=== PATIENT | female | born 1985 | race African-American/Black ===

== ENCOUNTER 2018-09-10 12:54 | Emergency (ER) | payer SELFPAY ==
[2018-09-10 13:00] VITALS: BMI 32.1
[2018-09-10] MEDS ORDERED: ACTIVATED CHARCOAL 260 MG CAPSULE PO ONE (13:17)
[2018-09-10] MEDS ORDERED: CHARCOAL/WATER SOLUTION 25 GM/120 ML TUBE ONE (13:23)
[2018-09-10 13:59] LABS: URINE APPEARANCE CLEAR; URINE BILIRUBIN NEGATIVE (<2.0 mg/dL); URINE COLOR STRAW; URINE GLUCOSE (UA) NEGATIVE (NEGATIVE); URINE KETONE NEGATIVE (NEGATIVE); URINE LEUK ESTERASE NEGATIVE (NEGATIVE); URINE NITRITE NEGATIVE (NEGATIVE); URINE PROTEIN NEGATIVE (NEGATIVE); URINE UROBILINOGEN NEGATIVE mg/dL (0.2-1.0)
[2018-09-10 14:00] LABS: PROTHROMBIN TIME (PATIENT) 11.8 SEC (9.7-13.0)
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
--- NOTE | 2018-09-10 14:23 | PDOC ---
History of Present Illness - General Chief Complaint: Overdose Stated Complaint: OVERDOSE Time Seen by Provider: 09/10/18 13:04 History Source: Patient Exam Limitations: No Limitations - History of Present Illness Initial Comments: 33 yo F w no reported medical history presents after an attempted suicide. She took 30 benadryl's 30 minutes prior to arrival. She has been feeling very depressed because her relationship with her has not been going well. After she took the pills she got scared so she came into the hospital. She has attempted suicide twice in the past. She is also currently . She does not know her LMP and has not yet had a formal ultrasound. She states she believes her last period was sometime in april. She is currently mentating well and has no AMS. she does admit to feeling like her heart is beating fast. She denies taking any tylenol, aspirin, TCAs or other drugs in this attempt. PCP: None Allergies: NKA, NKDA Social Hx: denies using illicit drugs, smoking cigarettes, or drinking alcohol during her . Past History - Past Medical History Allergies/Adverse Reactions: Allergies Allergy/AdvReac Type Severity Reaction Status Date / Time No Known Allergies Allergy Verified 09/10/18 12:56 Home Medications: Ambulatory Orders NK [No Known Home Medication] 09/10/18 COPD: No - Suicide/Smoking/Psychosocial Hx Smoking History: Former smoker Have you smoked in the past 12 months: No Information on smoking cessation initiated: No Hx Alcohol Use: No Drug/Substance Use Hx: No Review of Systems - Review of Systems Able to Perform ROS?: Yes Comments:: CONSTITUTIONAL: Absent: fever, no chills, no fatigue EYES: Absent: visual changes ENT: Absent: ear pain, no sore throat CARDIOVASCULAR: Absent: chest pain, no palpitations RESPIRATORY: Absent: cough, no SOB GI: Absent: abdominal pain, no nausea, no vomiting, no constipation, no diarrhea GENITOURINARY: Absent: dysuria, no frequency, no hematuria MUSKULOSKELETAL: Absent: back pain, no arthralgia, no myalgia SKIN: Absent: rash NEURO: Absent: headache *Physical Exam - Vital Signs Last Vital Signs Temp Pulse Resp BP Pulse Ox 98.5 F 90 20 116/82 100 09/10/18 12:57 09/10/18 12:57 09/10/18 12:57 09/10/18 12:57 09/10/18 12:57 - Physical Exam Comments: GENERAL: Well-appearing, well-nourished. No apparent distress. HEENT: Normocephalic, atraumatic. PERRL, EOM intact. CARDIOVASCULAR: Normal S1, S2. tachycardic rate and regular rhythm. PULMONARY: Clear to auscultation bilaterally. ABDOMEN: Soft, non-distended, non-tender. EXTREMITIES: Normal ROM in all four extremities. No gross deformities. SKIN: Warm, dry. No rash NEUROLOGICAL: No focal neurological deficits. Moderate Sedation - Procedure Monitoring Vital Signs: Procedure Monitoring Vital Signs Temperature 98.5 F 09/10/18 12:57 Pulse Rate 90 09/10/18 12:57 Respiratory Rate 20 09/10/18 12:57 Blood Pressure 116/82 09/10/18 12:57 O2 Sat by Pulse Oximetry (%) 100 09/10/18 12:57 ED Treatment Course - LABORATORY CBC & Chemistry Diagram: 09/10/18 13:40 09/10/18 13:40 - ADDITIONAL ORDERS Additional order review: Laboratory Results 09/10/18 09/10/18 09/10/18 13:40 13:40 13:40 PT with INR 11.80 INR 1.00 Sodium Cancelled Potassium Cancelled Chloride Cancelled Carbon Dioxide Cancelled Anion Gap Cancelled BUN Cancelled Creatinine Cancelled Creat Clearance w eGFR Cancelled Random Glucose Cancelled Calcium Cancelled Total Bilirubin Cancelled AST Cancelled ALT Cancelled Alkaline Phosphatase Cancelled Total Protein Cancelled Albumin Cancelled Beta HCG, Quant Cancelled Urine Color Urine Appearance Urine pH Ur Specific Chandler Urine Protein Urine Glucose (UA) Urine Ketones Urine Blood Urine Nitrite Urine Bilirubin Urine Urobilinogen Ur Leukocyte Esterase Alcohol, Quantitative Cancelled 09/10/18 13:40 PT with INR INR Sodium Potassium Chloride Carbon Dioxide Anion Gap BUN Creatinine Creat Clearance w eGFR Random Glucose Calcium Total Bilirubin AST ALT Alkaline Phosphatase Total Protein Albumin Beta HCG, Quant Urine Color Straw Urine Appearance Clear Urine pH 7.0 Ur Specific Chandler 1.003 L Urine Protein Negative Urine Glucose (UA) Negative Urine Ketones Negative Urine Blood Negative Urine Nitrite Negative Urine Bilirubin Negative Urine Urobilinogen Negative Ur Leukocyte Esterase Negative Alcohol, Quantitative - Medications Given in the ED: ED Medications Discontinued Medications Generic Name Dose Route Start Last Admin Trade Name Freq PRN Reason Stop Dose Admin Charcoal 15 mg 09/10/18 13:17 09/10/18 13:23 Charcoal Activated - PO 09/10/18 13:18 15 mg ONCE ONE Administration Medical Decision Making - Medical Decision Making 33 yo F presents after a suicide attempt with benadryl DDx IBNLT: antihistamine/cholinergic poisoning, tca od, aspirin, alcohol, acetaminophen od, other ingestion Plan: Labs, urine, psyche consult, poison control consult, 1:1 observation, monitor closely. Given the ingestion was 30 minutes prior to arrival we will attempt GI decontamination with activated charcoal. Spoke with poison control who recommends activated charcoal and supportive management. Patient started vomiting the charcoal everywhere - administering zofran. US showed normal viable fetus with HR of 127. Patient is medically cleared from drug OD. She admits to being a threat to herself and agrees to be transfered to a facility that can provide inpatient psychiatry. Transfer to wing initiated *DC/Admit/Observation/Transfer Diagnosis at time of Disposition: Suicide attempt, Suicide attempt by drug ingestion - Discharge Dispostion Disposition: TRANSFER ACUTE CARE/OTHER HOSP Condition at time of disposition: Guarded Decision to Admit order: Yes - Referrals - Patient Instructions - Post Discharge Activity
[2018-09-10] MEDS ORDERED: ONDANSETRON 4 MG TABLET PO ONE (14:28)
--- NOTE | 2018-09-10 14:29 | PDOC ---
Attending Attestation - Resident Resident Name: LanettekristanScott - ED Attending Attestation I have performed the following: I have examined & evaluated the patient, The case was reviewed & discussed with the resident, I agree w/resident's findings & plan, Exceptions are as noted - HPI HPI: 09/10/18 14:24 The patient is a 33 year old female, with no significant past medical history, who presents to the emergency department after intentional overdose on benadryl. Pt states that she took approx 20-30 tablets of diphenhydramine 25mg approximately 30 min prior to arrival to ED. Pt denies any coingestions. She states that she was attempting to kill herself. Pt also notes that her LMP was in April and she believes she is . Has had no care. The patient denies chest pain, shortness of breath, headache and dizziness. The patient denies fever, chills, nausea, vomit, diarrhea and constipation. The patient denies dysuria, frequency, urgency and hematuria. Allergies: NKDA - Physicial Exam PE: 09/10/18 14:25 "GENERAL: Awake, alert, and fully oriented, in no acute distress. HEAD: No signs of trauma EYES: PERRLA, EOMI, sclera anicteric, conjunctiva clear ENT: Auricles normal inspection, hearing grossly normal, nares patent, oropharynx clear without exudates. Moist mucosa NECK: Nontender, no stepoffs, Normal ROM, supple, no lymphadenopathy, JVD, or masses LUNGS: Breath sounds equal, clear to auscultation bilaterally. No wheezes, and no crackles HEART: Regular rate and rhythm, normal S1 and S2, no murmurs, rubs or gallops ABDOMEN: Soft, nontender, normoactive bowel sounds. No guarding, no rebound. No masses EXTREMITIES: Normal range of motion, no edema. No clubbing or cyanosis. No cords, erythema, or tenderness NEUROLOGICAL: Cranial nerves II through XII intact. 5/5 strength and sensation in all extremities, Normal speech, normal gait, normal cerebellar function SKIN: Warm, Dry, normal turgor, no rashes or lesions noted. - Critical Care Time Total Critical Care Time: 120 Critical Care Statement: The care of this patient involved high complexity decision making to prevent further life threatening deterioration of the patient 's condition and/or to evaluate & treat vital organ system(s) failure or risk of failure. - Medical Decision Making 09/10/18 14:26 33 F with intentional overdose on benadryl. Pt with stable vitals, normal exam. No s/s of anticholinergic toxidrome at this time. However, ingestion was very recent. Will need monitoring and repeat examinations. - Labs, Utox, HCG - Activated Charcoal Spoke with poison control, who recommend supportive care and GI decontamination with AC for now. Pt will need 8 hours of monitoring. If pt asymptomatic and HD stable by that time, she can be medically cleared Psych consulted Pt placed on 1:1 observation 09/10/18 18:28 Labs wnl Pt reassessed - continues to appear well from medical standpoint. Will be medically clear by 7pm Pt signed out to oncoming attending, Dr. Bo, pending re-evaluation and disposition 09/10/18 19:14 Pt medically cleared at this time. Pt reassessed by Dr. Haynes and Dr. Bo and deemed unsafe to discharge home due to persistent threat to self. Decision made to transfer to inpatient psych.
[2018-09-10] MEDS ORDERED: ONDANSETRON *ODT* 4 MG TABLET ONE (14:33)
[2018-09-10 14:38] LABS: BASO % 0.8 % (0-2.0); EOS % 2.9 % (0-4.5); HEMATOCRIT 36.1 % (32.4-45.2); HEMOGLOBIN 12.9 GM/dL (10.7-15.3); LYMPH % 21.2 % (8-40); MCH 31.4 pg (25.7-33.7); MCHC 35.6 g/dl (32.0-36.0); MONO % 4.3 % (3.8-10.2); NEUT % 70.8 % (42.8-82.8); PLATELET COUNT 170 K/MM3 (134-434); RDW 13.9 % (11.6-15.6); WHITE BLOOD COUNT 9.1 K/mm3 (4.0-10.0)
[2018-09-10 15:07] LABS: COCAINE, UR NEGATIVE ng/ml (CUTOFF=300); METHADONE, UR NEGATIVE ng/ml (CUTOFF=300); OPIATES, URI NEGATIVE ng/ml (CUTOFF=300); PHENCYCLIDINE,URINE NEGATIVE ng/ml (CUTOFF=25); URINE AMPHETAMINES NEGATIVE ng/ml (CUTOFF=500); URINE BARBITURATES NEGATIVE ng/ml (CUTOFF=200); URINE BENZODIAZEPINES NEGATIVE ng/ml (CUTOFF=200)
[2018-09-10 15:08] LABS: ALBUMIN 3.6 g/dl (3.4-5.0); ALK PHOS 122 U/L (45-117); ANION GAP 10 MMOL/L (8-16); BILIRUBIN,TOTAL 0.4 mg/dL (0.2-1); BLOOD UREA NITROGEN 5 mg/dL (7-18); CALCIUM 9.3 mg/dL (8.5-10.1); CHLORIDE 103 mmol/L (98-107); CO2 25 mmol/L (21-32); CREATININE 0.6 mg/dL (0.55-1.3); GLUCOSE,RANDOM 70 mg/dL (74-106); POTASSIUM 3.5 mmol/L (3.5-5.1); SGOT/AST 18 U/L (15-37); SGPT/ALT 15 U/L (13-61); SODIUM 137 mmol/L (136-145)
--- NOTE | 2018-09-10 15:38 | EKG ---
Test Reason : Blood Pressure : / mmHG Vent. Rate : 133 BPM Atrial Rate : 133 BPM P-R Int : 134 ms QRS Dur : 084 ms QT Int : 290 ms P-R-T Axes : 071 073 020 degrees QTc Int : 431 ms SINUS TACHYCARDIA OTHERWISE NORMAL ECG NO PREVIOUS ECGS AVAILABLE Confirmed by OCTAVIANO HOUSE MD ([id number]) on 09/10/2018 3:38:35 PM Referred By: Confirmed By:OCTAVIANO HOUSE MD
--- NOTE | 2018-09-10 22:47 | PN ---
Progress Note (short form) - Note Progress Note: PATIENT IS A 33 YO FEMALE WHO IS SEVERELY DEPRESSED, TOOK A SERIOUS OVERDOSE OF bENADRYL, POISIN CONTROL WAS CONTACTED. sHE IS IN NEED OF ADMISSION TO ACUTE ADMISSION FOR DANGER TO SELF. cLIENT WILL BE TRANSPORTED SOON TRANSPORT IS AVAILABLE. THANK YOU FOR CONSULT, SPOKE WITH journeyman sheet metal worker AND MD ATTENDING PATIENT AT ER. MAINTAIN ON CONSTANT OBSERVATION FOR SAFETY, SUICIDAL RISK. Problem List - Problems (1) Suicide and self-inflicted poisoning by drug or medicinal substance Code(s): T50.902A - POISONING BY UNSP DRUG/MEDS/BIOL SUBST, SELF-HARM, INIT (2) Depression affecting , antepartum Code(s): O99.340 - OT MENTAL DISORDERS COMPLICATING , UNSP TRIMESTER; F32.9 - MAJOR DEPRESSIVE DISORDER, SINGLE EPISODE, UNSPECIFIED
[2018-09-11 06:41] VITALS: TEMP 98
[2018-09-11] MEDS ORDERED: SODIUM CHLORIDE 1,000 ML IV STA (09:55)
[2018-09-11] MEDS ORDERED: SODIUM CHLORIDE 0.45% 1,000 ML IV SCH (10:00)
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
--- NOTE | 2018-09-11 18:13 | PDOC ---
*Physical Exam - Vital Signs Last Vital Signs Temp Pulse Resp BP Pulse Ox 98.0 F 90 15 91/55 L 100 09/11/18 06:40 09/11/18 06:40 09/11/18 06:40 09/11/18 06:40 09/11/18 06:40 - Physical Exam Comments: 09/11/18 18:05 Pt signed out to me by Dr. Molina at 5 pm on 09/10. Patient was medically cleared, but remained actively suicidal even though she was seen and cleared by advanced practice psychiatric nurse. Resident and I re-evaluated the patient, and while she had no physical complaints, she was still expressing SI and was unable to contract for safety. She was requesting inpatient Psych admission. reporting specialist Salvatore was re-called and updated regarding the patient's status. He agreed with admission to [facility] for psychiatry. He suggested that we "fill out the paperwork and send her". Case was discussed with [facility] at approximately 8 pm. They told us that they had a bed and were willing to accept the patient, and had a bed but that they needed a note from psychiatry. Radha was called and told that we needed an updated note from him. He stated that he had no remote access to [facility] and that it would be more than 2 hours before he was able to come to the ED to re-eval the patient to write a note. He arrived to re-write the note at approximately 12 am. At this point, there was no longer a bed at [facility]. Salvatore recommended making the patient 2PC, although she was agreeing to stay. I told him that I was uncomfortable committing the patient because she was compliant with treatment and requesting admission. [facility] was called and confirmed that voluntary admission signed by the patient was sufficient. Paperwork was faxed to [facility] by 1:00 am. Was signed out to Dr. Stanford as preliminarily accepted and under review by resident at 2 am. ED Treatment Course - LABORATORY CBC & Chemistry Diagram: 09/10/18 13:40 09/10/18 13:40 - ADDITIONAL ORDERS Additional order review: 09/10/18 13:40 RBC 4.10 MCV 88.0 MCHC 35.6 RDW 13.9 MPV 10.0 Neutrophils % 70.8 Lymphocytes % 21.2 Monocytes % 4.3 Eosinophils % 2.9 Basophils % 0.8 - Medications Given in the ED: ED Medications Discontinued Medications Generic Name Dose Route Start Last Admin Trade Name Ranjan PRN Reason Stop Dose Admin Charcoal 15 mg 09/10/18 13:17 09/10/18 13:23 Charcoal Activated - PO 09/10/18 13:18 15 mg ONCE ONE Administration Sodium Chloride 1,000 mls @ 1,000 mls/hr 09/11/18 09:55 09/11/18 12:37 Normal Saline - IV 09/11/18 10:54 Not Given ASDIR STA Ondansetron HCl 4 mg 09/10/18 14:28 09/10/18 14:35 Zofran - PO 09/10/18 14:29 4 mg ONCE ONE Administration *DC/Admit/Observation/Transfer Diagnosis at time of Disposition: Suicide attempt, Suicide attempt by drug ingestion - Discharge Dispostion Disposition: TRANSFER ACUTE CARE/OTHER HOSP Condition at time of disposition: Guarded - Referrals - Patient Instructions - Post Discharge Activity
[2018-09-12] MEDS ORDERED: ACETAMINOPHEN 325 MG TABLET (FP) PO ONE (01:45)
[2018-09-12] MEDS ORDERED: ACETAMINOPHEN 325 MG TABLET (FP) ONE (02:09)
--- NOTE | 2018-09-12 02:19 | PDOC ---
*Physical Exam - Vital Signs Last Vital Signs Temp Pulse Resp BP Pulse Ox 98.0 F 93 H 20 109/80 100 09/11/18 06:40 09/11/18 19:17 09/11/18 21:20 09/11/18 19:17 09/11/18 21:20 - Physical Exam Comments: 09/12/18 02:57 Was approached by patient as she had had no one communicate to her about the plan. Called transfer center at [facility] around 1am to inquire about status of transfer of patient to psych. Was told they had cancelde the transfer due to no beds available. Called [facility] and spoke to Dr. Lund at the Adult Ed who accepted the patient who will then go to Psych. ED Treatment Course - LABORATORY CBC & Chemistry Diagram: 09/10/18 13:40 09/10/18 13:40 - ADDITIONAL ORDERS Additional order review: 09/10/18 13:40 RBC 4.10 MCV 88.0 MCHC 35.6 RDW 13.9 MPV 10.0 Neutrophils % 70.8 Lymphocytes % 21.2 Monocytes % 4.3 Eosinophils % 2.9 Basophils % 0.8 - Medications Given in the ED: ED Medications Discontinued Medications Generic Name Dose Route Start Last Admin Trade Name Freq PRN Reason Stop Dose Admin Charcoal 15 mg 09/10/18 13:17 09/10/18 13:23 Charcoal Activated - PO 09/10/18 13:18 15 mg ONCE ONE Administration Sodium Chloride 1,000 mls @ 1,000 mls/hr 09/11/18 09:55 09/11/18 12:37 Normal Saline - IV 09/11/18 10:54 Not Given ASDIR STA Ondansetron HCl 4 mg 09/10/18 14:28 09/10/18 14:35 Zofran - PO 09/10/18 14:29 4 mg ONCE ONE Administration *DC/Admit/Observation/Transfer Diagnosis at time of Disposition: Suicide attempt, Suicide attempt by drug ingestion - Discharge Dispostion Disposition: TRANSFER ACUTE CARE/OTHER HOSP Condition at time of disposition: Guarded - Referrals - Patient Instructions - Post Discharge Activity - Transfer to Acute Care Facility Receiving Facility: [facility] Accepting Physician:: Dr. Lund
[2018-09-12 03:57] VITALS: BP 114/81; PULSE 90
== END 2018-09-12 04:02 | disposition short-term general hospital (02) ==
LOC: JER 12:54
CPT/HCPCS: 36415; 76801-TC; 80053; 80307; 81003; 84702; 85025; 85610; 93005; 93010; 99285-25

== ENCOUNTER 2021-09-10 20:24 | Emergency (ER) | payer OTHER ==
[2021-09-10 21:33] VITALS: BP 116/78; TEMP 101.4; BMI 30.2
[2021-09-10] MEDS ORDERED: SODIUM CHLORIDE 0.9% 500 ML INFUS.BAG IV ONE (22:08)
[2021-09-10] MEDS ORDERED: ONDANSETRON 4 MG/2 ML VIAL IVPUSH ONE (22:52)
[2021-09-10 23:20] LABS: BASO % 0.6 % (0-2.0); HEMATOCRIT 34.3 % (32.4-45.2); HEMOGLOBIN 11.8 GM/dL (10.7-15.3); LYMPH % 22.3 % (8-40); MCH 29.6 pg (25.7-33.7); MCHC 34.5 g/dl (32.0-36.0); MEAN CELL VOLUME 85.8 fl (80-96); MEAN PLT VOLUME 8.7 fl (7.5-11.1); MONO % 11.7 % (3.8-10.2); NEUT % 64.4 % (42.8-82.8); PLATELET COUNT 189 10^3/uL (134-434); RBC 3.99 M/mm3 (3.60-5.2); RDW 13.2 % (11.6-15.6); URINE APPEARANCE CLEAR; URINE BILIRUBIN NEGATIVE (NEGATIVE); URINE COLOR YELLOW; URINE GLUCOSE (UA) NEGATIVE (NEGATIVE); URINE KETONE NEGATIVE (NEGATIVE); URINE LEUK ESTERASE NEGATIVE (NEGATIVE); URINE NITRITE NEGATIVE (NEGATIVE); URINE PROTEIN NEGATIVE (NEGATIVE); URINE UROBILINOGEN 0.2 mg/dL (0.2-1.0); WHITE BLOOD COUNT 3.6 K/mm3 (4.0-10.0)
[2021-09-11 00:23] LABS: ALBUMIN 3.4 g/dl (3.4-5.0); CALCIUM 8.2 mg/dL (8.5-10.1)
[2021-09-11 00:24] LABS: BLOOD UREA NITROGEN 6.4 mg/dL (7-18)
[2021-09-11 00:27] LABS: CREATININE 0.8 mg/dL (0.55-1.3)
[2021-09-11 00:28] LABS: BILIRUBIN,TOTAL 0.4 mg/dL (0.2-1); TOT PROT 6.6 g/dl (6.4-8.2)
[2021-09-11 02:20] VITALS: PULSE 86
== END 2021-09-11 02:20 | disposition home or self-care (01) ==
LOC: JER 20:24
DX: B34.9 Viral infection, unspecified (principal)
CPT/HCPCS: 36415; 80053; 81003; 84703; 85025; 87804; 99283-25; C9803; U0003; U0005